=== PATIENT | female | born 1950 | race Caucasian/White ===

== ENCOUNTER 2019-11-08 17:31 | Emergency (ER) | payer MEDICARE, OTHER ==
[~2019-11-08] VITALS: Ht 157.5 cm; Wt 65.9 kg
[~2019-11-08 17:31] MED LIST: ALBU8.5H3 IH; LEVO125 PO
[2019-11-08] MEDS ORDERED: PERTUSS(ACELL),DIPH,TET VAC/PF 0.5 ML VIAL IM ONE (19:45)
[2019-11-08] MEDS ORDERED: LIDOCAINE 1%/EPI 1:200,000/PF 10 ML VIAL INJ ONE (20:00)
[2019-11-08] MEDS ORDERED: POVIDONE-IODINE 10% 15 ML SOLUTION UD TP ONE (20:00)
[2019-11-08] MEDS ORDERED: LIDOCAINE 1% 10 ML VIAL INJ ONE (20:45)
[2019-11-08] MEDS ORDERED: CEPHALEXIN MONOHYDRATE 500 MG CAPSULE PO ONE (21:45)
[2019-11-08 22:10] VITALS: BP 141/73
== END 2019-11-08 22:18 | disposition home or self-care (01) ==
LOC: EMS 17:32
DX: S91.341A Puncture wound with foreign body, right foot, initial encounter (principal); W45.8XXA Other foreign body or object entering through skin, initial encounter; Y93.89 Activity, other specified; Y92.89 Other specified places as the place of occurrence of the external cause; Y99.8 Other external cause status
CPT/HCPCS: 10120; 73630; 90471; 90715; 99285; J3490